=== PATIENT | female | born 2000 ===

== ENCOUNTER 2024-08-04 08:33 | Outpatient (CLI) | payer BC, SELFPAY ==
[2024-08-04 10:13] LABS: Hepatitis B Surface Antibody* Negative (Negative)
[2024-08-06 06:46] LABS: QuantiFERON Mitogen minus NIL 9.94 IU/mL; QuantiFERON NIL 0.06 IU/mL; Quantiferon Plus TB1 minus NIL 0.01 IU/mL (<=0.34); Quantiferon Plus TB2 minus NIL 0.01 IU/mL (<=0.34); Quantiferon TB Gold Plus Negative (Negative)
== END 2024-08-04 08:34 | disposition home or self-care (01) ==
LOC: LAB 08:37
PROVIDERS: Visit Provider Internal Medicine Infectious Disease
DX: Z01.84 Encounter for antibody response examination (principal); Z11.1 Encounter for screening for respiratory tuberculosis
CPT/HCPCS: 36415; 86480; 86706; 86735; 86762; 86765; 86787